=== PATIENT | male | born 1955 | race American Indian/Alaskan Native ===

== ENCOUNTER 2017-08-08 22:02 | Emergency (ER) | payer OTHER, BC ==
[2017-08-08 22:03] VITALS: BMI 31.9
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
[2017-08-09 02:11] VITALS: BP 132/78; PULSE 72; RESP 16; O2SAT 100
--- NOTE | 2017-08-09 09:17 | RAD ---
PROCEDURE: Cervical Spine Radiographs. HISTORY: Pain. COMPARISON: None. FINDINGS: BONES: Alignment maintained. No fracture. Dens Intact. DISC SPACES: Normal. SOFT TISSUES: Normal. No prevertebral soft tissue swelling. OTHER FINDINGS: None. IMPRESSION: Normal cervical spine radiographs
== END 2017-08-09 00:21 | disposition home or self-care (01) ==
LOC: ED 22:02
DX: S16.1XXA Strain of muscle, fascia and tendon at neck level, initial encounter (principal); V43.52XA Car driver injured in collision with other type car in traffic accident, initial encounter; Y92.410 Unspecified street and highway as the place of occurrence of the external cause